=== PATIENT | female | born 1965 | race Hispanic/Latino ===

== ENCOUNTER 2019-04-09 13:49 | Outpatient (CLI) | payer OTHER ==
--- NOTE | 2019-04-09 14:43 | BD ---
EXAM: Bone densitometry using DEXA HISTORY: 53 yo female. Screening for postmenopausal osteoporosis. Encounter for gynecological exam (routine) FINDINGS: L1--bone mineral density 0.822 g/sq cm; T score -1.5 ; Z score -0.7 L2--bone mineral density 0.950 g/sq cm; T score -0.7 ; Z score 0.2 L3--bone mineral density 1.037 g/sq cm; T score -0.4 ; Z score 0.6 L4--bone mineral density 0.967 g/sq cm; T score -0.9 ; Z score 0.1 Total L1-L4--bone mineral density 0.952 g/sq cm; T score -0.9 ; Z score 0.1 Left femoral neck--bone mineral density0.677; T score -1.6 ; Z score -0.6 Total proximal left femur--bone mineral density 1.034; T score 0.8 ; Z score 1.4 The 10 year fracture risk for a major osteoporotic fracture is 3.1% and for a hip fracture is 0.2%. IMPRESSION: Osteopenia
== END 2019-04-09 13:50 | disposition home or self-care (01) ==
LOC: BICMAMMO 13:49
PROVIDERS: ATTEND Family Medicine
DX: Z13.820 Encounter for screening for osteoporosis (principal); M85.89 Other specified disorders of bone density and structure, multiple sites
CPT/HCPCS: 77080

== ENCOUNTER 2020-06-22 09:56 | Outpatient (CLI) | payer BC | END 2020-06-22 09:57 | disposition home or self-care (01) | LOC: BICMAMMO 09:56 | PROVIDERS: ATTEND Family Medicine | DX: Z12.31 Encounter for screening mammogram for malignant neoplasm of breast (principal) | CPT/HCPCS: 77063; 77067 ==

== ENCOUNTER 2021-10-28 14:45 | Inpatient (IN) | payer BC, MEDICARE, OTHER ==
[2021-10-28] MEDS ORDERED: Iopamidol-370 76% 500 ML 1 ML ONE (14:53)
[2021-10-28 15:28] LABS: #Neutrophils 8.1 thou/uL (1.40-6.50); %Basophils 0.1 % (0.0-1.0); %Eosinophils 0.4 % (0.0-10.0); %Lymphocytes 9.8 % (21.0-51.0); %Monocytes 9.5 % (0.0-10.0); %Neutrophils 80.2 % (42.0-75.0); Mean Corpuscular HGB CONC 33.4 g/dL (32.0-36.0); Mean Corpuscular Hemoglobin 29.7 pg (27.0-31.0); Mean Corpuscular Volume 88.9 fL (78.0-98.0); Platelet Count 354 thou/uL (130-400); RBC Distribution Width 13.1 % (11.5-14.5); Red Blood Cell (RBC) Count 4.38 mill/uL (4.20-5.40); White Blood Cell (WBC) Count 10.1 thou/uL (4.8-10.8)
[2021-10-28] MEDS ORDERED: Morphine 4 MG/ML VIAL ONE ×2 (15:34→16:28)
[2021-10-28] MEDS ORDERED: Ondansetron PF 4 MG/2 ML Vial ONE (15:34)
[2021-10-28 15:54] LABS: ALT (SGPT) 16 U/L (8-55); AST (SGOT) 22 U/L (5-34); Albumin 4.1 g/dL (3.5-5.0); Alkaline Phosphatase 80 U/L (40-110); Anion Gap 21 mmol/L (10-20); BUN (Urea Nitrogen) 27 mg/dL (9.8-20.1); Bilirubin, Total 0.6 mg/dL (0.2-1.2); Calc. Creatinine Clearance 0 mL/min (70-130); Calcium 9.8 mg/dL (7.8-10.44); Carbon Dioxide 18 mmol/L (22-29); Chloride 98 mmol/L (98-107); Estimated GFR 37; Globulin 3.3 g/dL (2.4-3.5); Glucose 265 mg/dL (70-105); Protein, Total 7.4 g/dL (6.0-8.3); Sodium 133 mmol/L (136-145)
[2021-10-28 16:00] LABS: Bilirubin Negative (Negative); Blood, Urine 1+ (Negative); Clarity Extra Turbid (Clear); Glucose, Urine (Dipstick) Normal (Negative); Ketone, Urine Trace mg/dL (Negative); Leukocyte 500 Leu/uL (Negative); Nitrite Negative (Negative); Protein, Urine (Dipstick) 20 mg/dL (Neg-Trace); Specific Gravity, Urine 1.012 (1.002-1.036); Urobilinogen Normal mg/dL (Less than 2); WBC/HPF Greater than 50 HPF (0-3)
[2021-10-28 16:14] LABS: Bacteria/HPF 1+ HPF (None Seen); Yeast-Budding 2+ HPF (None Seen)
[2021-10-28] MEDS ORDERED: Fleet Enema 133 ML BOT PR SCH (18:15)
[2021-10-28] MEDS ORDERED: Cefepime 2 GM VIAL ONE (20:00)
[2021-10-28] MEDS ORDERED: Calcium Carbonate 500 MG ChewTAB PO PRN (23:48)
[2021-10-28] MEDS ORDERED: Acetaminophen 650 MG Suppository PR PRN (23:48)
[2021-10-28] MEDS ORDERED: Ondansetron PF 4 MG/2 ML Vial IVP PRN (23:48)
[2021-10-28] MEDS ORDERED: Ondansetron ODT 4 MG TAB PO PRN (23:48)
[2021-10-29 00:03] VITALS: BMI 25.8
[2021-10-29] MEDS: Sodium Chloride 0.9% 1,000 ML IV SCH ×3 (00:20→20:20)
[2021-10-29] MEDS ORDERED: Dextrose 5% in Water 1,000 ML IV PRN (08:15)
[2021-10-29] MEDS ORDERED: HumaLOG 300 UNITS/3 ML VIAL SC PRN (08:15)
[2021-10-29] MEDS ORDERED: Dextrose 50% Abboject 50 ML SYRINGE SLOW IVP PRN (08:15)
[2021-10-29] MEDS: Polyethylene Glycol 3350 17 GM Packet PO SCH (08:26)
[2021-10-29] MEDS ORDERED: Non-Formulary Item 1 EACH (Insulin Nph Hum/Reg Insulin Hm [Novolin 70-30 Flexpen] 100 UNI SQ SCH (09:00)
[2021-10-29] MEDS ORDERED: NIFEdipine XL 60 MG TAB PO SCH (09:00)
[2021-10-29] MEDS ORDERED: NPH, Human Insulin Isophane 300 UNIT/3 ML VIAL SC SCH (09:00)
[2021-10-29 09:30] LABS: Anion Gap 14 mmol/L (10-20); BUN (Urea Nitrogen) 17 mg/dL (9.8-20.1); Calc. Creatinine Clearance 66 mL/min (70-130); Calcium 8.7 mg/dL (7.8-10.44); Carbon Dioxide 25 mmol/L (22-29); Chloride 103 mmol/L (98-107); Estimated GFR 72; Glucose 222 mg/dL (70-105); Potassium 3.4 mmol/L (3.5-5.1); Sodium 139 mmol/L (136-145)
[2021-10-29] MEDS: Famotidine/PF 20 mg/2ml Vial SLOW IVP SCH (09:30)
[2021-10-29] MEDS: Heparin 5,000 UNITS/ML VIAL SC SCH ×3 (10:31→20:14)
[2021-10-29] MEDS: Senokot S 8.6-50 MG TAB PO SCH ×2 (10:31→20:14)
[2021-10-29] MEDS: NIFEdipine XL 60 MG TAB PO SCH (10:31)
[2021-10-29] MEDS: Famotidine 20 MG TAB PO SCH (10:31)
[2021-10-29] MEDS: Carvedilol 6.25 MG TAB PO SCH ×2 (10:32→16:15)
[2021-10-29] MEDS: cefTRIAXone\\ROCEPHIN 1 GM in Sodium Chloride 0.9% 100 ML IVPB SCH (10:32)
[2021-10-29] MEDS: HumuLIN 70/30 (300 UNITS/3 ML VIAL) FS SCH ×2 (10:48→20:14)
[2021-10-29] MEDS ORDERED: Carvedilol 6.25 MG TAB PO SCH (17:00)
[2021-10-29] MEDS ORDERED: Potassium Chloride 20 MEQ TAB PO SCH (18:00)
[2021-10-29] MEDS ORDERED: Bisacodyl 10 MG SUPP PR PRN (19:47)
[2021-10-29] MEDS: Atorvastatin Calcium 40 MG TAB PO SCH (20:13)
[2021-10-29] MEDS ORDERED: Non-Formulary Item 1 EACH (Atorvastatin Calcium [Atorvastatin Calcium] 80 MG Tablet) PO SCH (21:00)
[2021-10-30 07:39] LABS: Anion Gap 13 mmol/L (10-20); BUN (Urea Nitrogen) 12 mg/dL (9.8-20.1); Calc. Creatinine Clearance 74 mL/min (70-130); Calcium 8.7 mg/dL (7.8-10.44); Carbon Dioxide 24 mmol/L (22-29); Chloride 106 mmol/L (98-107); Estimated GFR 82; Glucose 165 mg/dL (70-105); Potassium 3.2 mmol/L (3.5-5.1); Sodium 140 mmol/L (136-145)
[2021-10-30] MEDS: cefTRIAXone\\ROCEPHIN 1 GM in Sodium Chloride 0.9% 100 ML IVPB SCH (09:04)
[2021-10-30] MEDS: Heparin 5,000 UNITS/ML VIAL SC SCH ×3 (09:04→20:44)
[2021-10-30] MEDS: Polyethylene Glycol 3350 17 GM Packet PO SCH (09:04)
[2021-10-30] MEDS: HumuLIN 70/30 (300 UNITS/3 ML VIAL) FS SCH ×2 (09:04→20:45)
[2021-10-30] MEDS: NIFEdipine XL 60 MG TAB PO SCH (09:04)
[2021-10-30] MEDS: Senokot S 8.6-50 MG TAB PO SCH ×2 (09:05→20:39)
[2021-10-30] MEDS: Famotidine/PF 20 mg/2ml Vial SLOW IVP SCH (09:05)
[2021-10-30] MEDS: Carvedilol 6.25 MG TAB PO SCH ×2 (09:05→16:01)
[2021-10-30] MEDS: Famotidine 20 MG TAB PO SCH (09:05)
[2021-10-30] MEDS ORDERED: Potassium Chloride 20 MEQ TAB PO SCH (09:15)
[2021-10-30] MEDS: Atorvastatin Calcium 40 MG TAB PO SCH (20:39)
[2021-10-31] MEDS: Acetaminophen 325 MG TAB PO PRN (05:27)
[2021-10-31 06:56] LABS: Anion Gap 16 mmol/L (10-20); BUN (Urea Nitrogen) 9 mg/dL (9.8-20.1); Calc. Creatinine Clearance 72 mL/min (70-130); Calcium 8.7 mg/dL (7.8-10.44); Carbon Dioxide 25 mmol/L (22-29); Chloride 103 mmol/L (98-107); Estimated GFR 79; Glucose 235 mg/dL (70-105); Potassium 3.5 mmol/L (3.5-5.1); Sodium 140 mmol/L (136-145)
[2021-10-31] MEDS: Famotidine/PF 20 mg/2ml Vial SLOW IVP SCH (08:32)
[2021-10-31] MEDS: Carvedilol 6.25 MG TAB PO SCH ×2 (08:35→16:12)
[2021-10-31] MEDS: Senokot S 8.6-50 MG TAB PO SCH ×2 (08:35→21:18)
[2021-10-31] MEDS: HumuLIN 70/30 (300 UNITS/3 ML VIAL) FS SCH ×2 (08:35→21:18)
[2021-10-31] MEDS: Heparin 5,000 UNITS/ML VIAL SC SCH ×3 (08:35→21:18)
[2021-10-31] MEDS: Polyethylene Glycol 3350 17 GM Packet PO SCH (08:35)
[2021-10-31] MEDS: NIFEdipine XL 60 MG TAB PO SCH (08:35)
[2021-10-31] MEDS: Famotidine 20 MG TAB PO SCH (08:36)
[2021-10-31] MEDS ORDERED: HumaLOG 300 UNITS/3 ML VIAL SC PRN (10:21)
[2021-10-31] MEDS ORDERED: Tamsulosin HCl 0.4 MG CAP PO SCH (10:30)
[2021-10-31] MEDS: cefTRIAXone\\ROCEPHIN 1 GM in Sodium Chloride 0.9% 100 ML IVPB SCH (11:27)
[2021-10-31] MEDS: HumaLOG 300 UNITS/3 ML VIAL SC PRN (17:10)
[2021-10-31] MEDS: Atorvastatin Calcium 40 MG TAB PO SCH (21:21)
[2021-11-01] MEDS: Acetaminophen 325 MG TAB PO PRN (06:23)
[2021-11-01 06:54] LABS: #Eosinphils 0.2 thou/uL (0.0-0.7); #Lymphocytes 2.2 thou/uL (1.20-3.40); #Monocytes 0.5 thou/uL (0.11-0.59); #Neutrophils 2.6 thou/uL (1.40-6.50); %Basophils 0.6 % (0.0-1.0); %Eosinophils 3.4 % (0.0-10.0); %Lymphocytes 40.1 % (21.0-51.0); %Monocytes 9.1 % (0.0-10.0); %Neutrophils 46.8 % (42.0-75.0); Mean Corpuscular HGB CONC 33.5 g/dL (32.0-36.0); Mean Corpuscular Hemoglobin 30.4 pg (27.0-31.0); Mean Corpuscular Volume 90.8 fL (78.0-98.0); Mean Platelet Volume 7.3 fL (7.4-10.4); Platelet Count 349 thou/uL (130-400); RBC Distribution Width 12.8 % (11.5-14.5); White Blood Cell (WBC) Count 5.6 thou/uL (4.8-10.8)
[2021-11-01 07:19] LABS: Anion Gap 17 mmol/L (10-20); BUN (Urea Nitrogen) 10 mg/dL (9.8-20.1); Calc. Creatinine Clearance 76 mL/min (70-130); Calcium 9.4 mg/dL (7.8-10.44); Carbon Dioxide 25 mmol/L (22-29); Chloride 102 mmol/L (98-107); Estimated GFR 84; Glucose 141 mg/dL (70-105); Potassium 3.7 mmol/L (3.5-5.1); Sodium 140 mmol/L (136-145)
[2021-11-01] MEDS: Senokot S 8.6-50 MG TAB PO SCH (08:41)
[2021-11-01] MEDS: Carvedilol 6.25 MG TAB PO SCH ×2 (08:41→17:21)
[2021-11-01] MEDS: Famotidine 20 MG TAB PO SCH (08:41)
[2021-11-01] MEDS: NIFEdipine XL 60 MG TAB PO SCH (08:42)
[2021-11-01] MEDS: Famotidine/PF 20 mg/2ml Vial SLOW IVP SCH (08:42)
[2021-11-01] MEDS: Heparin 5,000 UNITS/ML VIAL SC SCH ×2 (08:42→14:53)
[2021-11-01] MEDS: Polyethylene Glycol 3350 17 GM Packet PO SCH (08:43)
[2021-11-01] MEDS: HumuLIN 70/30 (300 UNITS/3 ML VIAL) FS SCH (08:43)
[2021-11-01] MEDS: cefTRIAXone\\ROCEPHIN 1 GM in Sodium Chloride 0.9% 100 ML IVPB SCH (09:50)
[2021-11-01] MEDS: HumaLOG 300 UNITS/3 ML VIAL SC PRN (12:53)
[2021-11-01 20:19] VITALS: BP 150/83; TEMP 98
[2021-11-01] MEDS ORDERED: Tamsulosin HCl 0.4 MG CAP PO SCH (21:00)
== END 2021-11-01 20:07 | disposition home or self-care (01) | DRG 389 ==
LOC: ERS 14:45 → T4-B 21:01 → OBSVTOIN 10-30 17:58
PROVIDERS: ADMIT Student in an Organized Health Care Education/Training Program; ATTEND Family Medicine
PROC: 0DCP7ZZ Extirpation of Matter from Rectum, Via Natural or Artificial Opening (ICD-10-PCS; principal; 2021-10-30)
DX: K56.41 Fecal impaction (principal); I69.354 Hemiplegia and hemiparesis following cerebral infarction affecting left non-dominant side; N17.9 Acute kidney failure, unspecified; N30.01 Acute cystitis with hematuria; N13.6 Pyonephrosis; Z20.822 Contact with and (suspected) exposure to COVID-19; R33.9 Retention of urine, unspecified; I65.22 Occlusion and stenosis of left carotid artery; I10 Essential (primary) hypertension; E11.9 Type 2 diabetes mellitus without complications; E78.00 Pure hypercholesterolemia, unspecified; L89.152 Pressure ulcer of sacral region, stage 2; E11.628 Type 2 diabetes mellitus with other skin complications; L08.9 Local infection of the skin and subcutaneous tissue, unspecified; Z79.899 Other long term (current) drug therapy; Z79.4 Long term (current) use of insulin; Z80.0 Family history of malignant neoplasm of digestive organs; Z82.49 Family history of ischemic heart disease and other diseases of the circulatory system; Z83.3 Family history of diabetes mellitus
CPT/HCPCS: 36415; 36416; 51702; 70450; 74177; 80048; 80053; 81003; 81015; 83605; 85025; 87040; 87086; 93005; 93880; 94760; 96365; 96372; 96375; 96376; 97139; G0378; J0692; J0696; J1644; J1815; J2270; J2405; J3490; J7050; Q9967; U0003; U0005

== ENCOUNTER 2021-11-04 16:35 | Emergency (ER) | payer MEDICARE ==
[2021-11-04] MEDS ORDERED: Lidocaine Viscous Sol 2% 15 ml UD Cup ONE ×2 (17:24→17:49)
[2021-11-04 17:26] LABS: Bilirubin Negative (Negative); Blood, Urine 2+ (Negative); Clarity Clear (Clear); Glucose, Urine (Dipstick) 30 mg/dL (Negative); Ketone, Urine Negative (Negative); Leukocyte 75 Leu/uL (Negative); Nitrite Negative (Negative); Protein, Urine (Dipstick) 10 mg/dL (Neg-Trace); RBC/HPF 0-3 HPF (0-3); Specific Gravity, Urine 1.005 (1.002-1.036); Squamous Epithelial 0-3 HPF (0-3); Urobilinogen Normal mg/dL (Less than 2)
[2021-11-04 17:27] LABS: Bacteria/HPF 1+ HPF (None Seen)
[2021-11-04 18:22] LABS: #Basophils 0.1 thou/uL (0.0-0.2); #Eosinphils 0.2 thou/uL (0.0-0.7); #Lymphocytes 2.3 thou/uL (1.20-3.40); #Monocytes 0.7 thou/uL (0.11-0.59); #Neutrophils 4.1 thou/uL (1.40-6.50); %Eosinophils 3.4 % (0.0-10.0); %Lymphocytes 31.3 % (21.0-51.0); %Monocytes 9.9 % (0.0-10.0); %Neutrophils 54.5 % (42.0-75.0); Hemoglobin 12.1 g/dL (12.0-16.0); Mean Corpuscular HGB CONC 34.5 g/dL (32.0-36.0); Mean Corpuscular Hemoglobin 30.9 pg (27.0-31.0); Mean Corpuscular Volume 89.6 fL (78.0-98.0); Mean Platelet Volume 7.4 fL (7.4-10.4); Platelet Count 346 thou/uL (130-400); RBC Distribution Width 12.7 % (11.5-14.5); Red Blood Cell (RBC) Count 3.91 mill/uL (4.20-5.40); White Blood Cell (WBC) Count 7.4 thou/uL (4.8-10.8)
[2021-11-04 18:50] LABS: ALT (SGPT) 20 U/L (8-55); AST (SGOT) 18 U/L (5-34); Albumin 3.5 g/dL (3.5-5.0); Alkaline Phosphatase 74 U/L (40-110); Anion Gap 13 mmol/L (10-20); BUN (Urea Nitrogen) 18 mg/dL (9.8-20.1); Bilirubin, Total 0.3 mg/dL (0.2-1.2); Calc. Creatinine Clearance 0 mL/min (70-130); Carbon Dioxide 25 mmol/L (22-29); Chloride 100 mmol/L (98-107); Estimated GFR 70; Globulin 2.6 g/dL (2.4-3.5); Glucose 275 mg/dL (70-105); Potassium 3.8 mmol/L (3.5-5.1); Protein, Total 6.1 g/dL (6.0-8.3); Sodium 134 mmol/L (136-145)
== END 2021-11-04 19:38 | disposition home or self-care (01) ==
LOC: ERS 16:35
DX: T83.84XA Pain due to genitourinary prosthetic devices, implants and grafts, initial encounter (principal); R82.71 Bacteriuria; E11.9 Type 2 diabetes mellitus without complications; I10 Essential (primary) hypertension; E78.00 Pure hypercholesterolemia, unspecified; Z79.899 Other long term (current) drug therapy
CPT/HCPCS: 36415; 51702; 80053; 81003; 81015; 83036; 84443; 85025; 87086

== ENCOUNTER 2021-11-11 16:19 | Emergency (ER) | payer MEDICARE, OTHER ==
[2021-11-11 17:05] LABS: #Eosinphils 0.2 thou/uL (0.0-0.7); #Lymphocytes 2.7 thou/uL (1.20-3.40); #Monocytes 0.6 thou/uL (0.11-0.59); #Neutrophils 2.8 thou/uL (1.40-6.50); %Basophils 0.6 % (0.0-1.0); %Lymphocytes 42.4 % (21.0-51.0); %Monocytes 9.8 % (0.0-10.0); %Neutrophils 44.2 % (42.0-75.0); Hemoglobin 12.8 g/dL (12.0-16.0); Mean Corpuscular HGB CONC 33.8 g/dL (32.0-36.0); Mean Corpuscular Hemoglobin 30.5 pg (27.0-31.0); Mean Platelet Volume 7.6 fL (7.4-10.4); Platelet Count 411 thou/uL (130-400); RBC Distribution Width 13.4 % (11.5-14.5); Red Blood Cell (RBC) Count 4.21 mill/uL (4.20-5.40); White Blood Cell (WBC) Count 6.3 thou/uL (4.8-10.8)
[2021-11-11 17:29] LABS: ALT (SGPT) 16 U/L (8-55); AST (SGOT) 14 U/L (5-34); Albumin 4.1 g/dL (3.5-5.0); Alkaline Phosphatase 77 U/L (40-110); Anion Gap 14 mmol/L (10-20); BUN (Urea Nitrogen) 20 mg/dL (9.8-20.1); Bilirubin, Total 0.3 mg/dL (0.2-1.2); Calc. Creatinine Clearance 0 mL/min (70-130); Calcium 9.8 mg/dL (7.8-10.44); Carbon Dioxide 21 mmol/L (22-29); Chloride 104 mmol/L (98-107); Estimated GFR 79; Globulin 3.1 g/dL (2.4-3.5); Glucose 306 mg/dL (70-105); Potassium 4.2 mmol/L (3.5-5.1); Protein, Total 7.2 g/dL (6.0-8.3); Sodium 135 mmol/L (136-145)
[2021-11-11 17:44] LABS: Bacteria/HPF None Seen HPF (None Seen); Bilirubin Negative (Negative); Blood, Urine 1+ (Negative); Clarity Clear (Clear); Glucose, Urine (Dipstick) Greater than 1000 mg/dL (Negative); Ketone, Urine Negative (Negative); Leukocyte 250 Leu/uL (Negative); Nitrite Negative (Negative); Protein, Urine (Dipstick) 50 mg/dL (Neg-Trace); Specific Gravity, Urine 1.028 (1.002-1.036); Squamous Epithelial 0-3 HPF (0-3); Urobilinogen Normal mg/dL (Less than 2)
[2021-11-11 17:46] LABS: Calcium Oxalate Crystals Rare HPF (None Seen); Yeast-Budding 1+ HPF (None Seen)
[2021-11-11] MEDS ORDERED: Ketorolac Tromethamine 30 MG/ML VIAL ONE (18:02)
== END 2021-11-11 18:45 | disposition home or self-care (01) ==
LOC: ERS 16:19
DX: T83.84XA Pain due to genitourinary prosthetic devices, implants and grafts, initial encounter (principal); N39.0 Urinary tract infection, site not specified; I10 Essential (primary) hypertension; E11.9 Type 2 diabetes mellitus without complications; E78.00 Pure hypercholesterolemia, unspecified; Z79.899 Other long term (current) drug therapy
CPT/HCPCS: 36415; 80053; 81003; 81015; 85025; 87086; 96372; 99283; J1885

== ENCOUNTER 2021-11-19 17:23 | Emergency (ER) | payer MEDICARE ==
[2021-11-19 19:16] LABS: Bilirubin Negative (Negative); Blood, Urine Negative (Negative); Clarity Clear (Clear); Glucose, Urine (Dipstick) 500 mg/dL (Negative); Ketone, Urine Negative (Negative); Leukocyte 250 Leu/uL (Negative); Nitrite Negative (Negative); Protein, Urine (Dipstick) 50 mg/dL (Neg-Trace); Specific Gravity, Urine 1.032 (1.002-1.036); Urobilinogen Normal mg/dL (Less than 2); pH, Urine 5.5 (5.0-9.0)
[2021-11-19 19:18] LABS: Bacteria/HPF 1+ HPF (None Seen); Yeast-Budding 2+ HPF (None Seen)
[2021-11-19 19:19] LABS: RBC/HPF 0-3 HPF (0-3)
== END 2021-11-19 20:29 | disposition home or self-care (01) ==
LOC: ERS 17:23
DX: T83.84XA Pain due to genitourinary prosthetic devices, implants and grafts, initial encounter (principal); R33.9 Retention of urine, unspecified; I10 Essential (primary) hypertension; E11.9 Type 2 diabetes mellitus without complications; E78.00 Pure hypercholesterolemia, unspecified; Z79.899 Other long term (current) drug therapy
CPT/HCPCS: 81003; 81015; 99283

== ENCOUNTER 2022-05-31 16:18 | Outpatient (CLI) | payer MEDICARE ==
[2022-05-31 17:06] LABS: #Eosinphils 0.2 10x3/uL (0.0-0.5); #Monocytes 0.5 10x3/uL (0.0-1.1); #Neutrophils 3.3 10x3/uL (1.5-8.4); %Basophils 0.6 % (0.0-2.0); %Eosinophils 2.5 % (0.0-6.0); %Lymphocytes 37.3 % (18.0-47.0); %Monocytes 7.5 % (0.0-10.0); %Neutrophils 51.9 % (40.0-75.0); Hemoglobin 13.1 g/dL (12.0-15.5); Mean Corpuscular HGB CONC 32.9 g/dL (32.0-36.0); Mean Corpuscular Hemoglobin 29.2 pg (27.0-33.0); Mean Corpuscular Volume 88.8 fl (81.6-98.3); Mean Platelet Volume 10.1 fl (7.4-10.4); Platelet Count 375 10x3/uL (150-450); RBC Distribution Width 12.8 % (11.5-14.5); Red Blood Cell (RBC) Count 4.48 10x6/uL (3.90-5.03); White Blood Cell (WBC) Count 6.3 10x3/uL (3.5-10.5)
[2022-05-31 17:16] LABS: ALT (SGPT) 17 U/L (8-55); AST (SGOT) 19 U/L (5-34); Albumin 4.3 g/dL (3.5-5.0); Alkaline Phosphatase 95 U/L (40-110); Anion Gap 17 mmol/L (10-20); BUN (Urea Nitrogen) 22 mg/dL (9.8-20.1); Bilirubin, Total 0.3 mg/dL (0.2-1.2); Calc. Creatinine Clearance 0 mL/min (70-130); Calcium 9.3 mg/dL (7.8-10.44); Carbon Dioxide 24 mmol/L (22-29); Chloride 105 mmol/L (98-107); Estimated GFR 77; Globulin 2.9 g/dL (2.4-3.5); Glucose 222 mg/dL (70-105); Potassium 4.2 mmol/L (3.5-5.1); Protein, Total 7.2 g/dL (6.0-8.3); Sodium 142 mmol/L (136-145)
== END 2022-05-31 16:19 | disposition home or self-care (01) ==
LOC: LABBT 16:18
PROVIDERS: ATTEND Internal Medicine Cardiovascular Disease
DX: Z01.812 Encounter for preprocedural laboratory examination (principal); R06.00 Dyspnea, unspecified
CPT/HCPCS: 80053; 85025

== ENCOUNTER 2022-06-02 06:08 | Day surgery (SDC) | payer MEDICARE ==
[2022-06-01 11:11] VITALS: BMI 31.1
[2022-06-02] MEDS ORDERED: fentaNYL 50 mcg/mL 1 mL Vial ONE (06:21)
[2022-06-02] MEDS ORDERED: Midazolam HCl 2 mg/2 ml Vial ONE (06:21)
[2022-06-02] MEDS ORDERED: Heparin 10,000 UNITS/ 10 ML VIAL ONE (06:21)
[2022-06-02] MEDS ORDERED: Nitroglycerin 50 MG/250 ML BOT 0 ML ONE (06:22)
[2022-06-02] MEDS ORDERED: Lidocaine 1% (PF) 30 ML VIAL ONE (06:22)
[2022-06-02] MEDS ORDERED: Iopamidol 370 76% 100 ML VIAL ONE (12:56)
== END 2022-06-02 10:45 | disposition home or self-care (01) ==
LOC: SDC 06:08
PROVIDERS: ATTEND Internal Medicine Cardiovascular Disease
PROC: 4A023N7 Measurement of Cardiac Sampling and Pressure, Left Heart, Percutaneous Approach (ICD-10-PCS; principal; 2022-06-02)
PROC: B2111ZZ Fluoroscopy of Multiple Coronary Arteries using Low Osmolar Contrast (ICD-10-PCS; 2022-06-02)
DX: I25.10 Atherosclerotic heart disease of native coronary artery without angina pectoris (principal); E78.5 Hyperlipidemia, unspecified; E11.51 Type 2 diabetes mellitus with diabetic peripheral angiopathy without gangrene; Z79.4 Long term (current) use of insulin; Z79.82 Long term (current) use of aspirin; Z79.899 Other long term (current) drug therapy
CPT/HCPCS: 82962; 93458; C1769 ×2; C1894; J3010; 36416; 99152; J1644; J2001; J2250; Q9967

== ENCOUNTER 2022-10-26 11:54 | Outpatient (CLI) | payer OTHER | END 2022-10-26 11:55 | disposition home or self-care (01) | LOC: RAD 11:54 | PROVIDERS: ATTEND Nurse Practitioner Family | DX: R53.1 Weakness (principal); E11.65 Type 2 diabetes mellitus with hyperglycemia | CPT/HCPCS: 36415; 71046; 80053; 81001; 83036; 83880; 85025; 85379; 87086 ==

== ENCOUNTER 2022-10-27 12:15 | Emergency (ER) | payer OTHER | END 2022-10-27 14:23 | disposition home or self-care (01) | LOC: ERS 12:15 | DX: R79.1 Abnormal coagulation profile (principal); E11.9 Type 2 diabetes mellitus without complications; E78.00 Pure hypercholesterolemia, unspecified; I10 Essential (primary) hypertension; Z79.82 Long term (current) use of aspirin; Z79.899 Other long term (current) drug therapy | CPT/HCPCS: 93970 ==

== ENCOUNTER 2022-12-01 08:30 | Outpatient (CLI) | payer OTHER | END 2022-12-01 08:31 | disposition home or self-care (01) | LOC: MRI 08:30 | PROVIDERS: ATTEND Family Medicine | DX: M54.16 Radiculopathy, lumbar region (principal); N32.89 Other specified disorders of bladder; D17.79 Benign lipomatous neoplasm of other sites | CPT/HCPCS: 72148 ==

== ENCOUNTER 2022-12-13 07:42 | Inpatient (IN) | payer OTHER, MEDICARE ==
[2022-12-13 08:52] LABS: Actual Bicarbonate (HCO3v) 21.9 mEq/L (22-28); Base Excess -2.6 mEq/L (-2.0 to +3.0); Calcium, Ionized (venous) 1.12 mmol/L (1.16-1.32); Chloride (VBG) 106 mmol/L (98-106); Hematocrit-VBG 43 % (36.0-47.0); Hemoglobin (Hb) 14.5 g/dL (11.7-16.0); Potassium (VBG) 3.47 mmol/L (3.70-5.30); Sodium 140 mmol/L (133-146); pH (venous) 7.389 (7.32-7.43)
[2022-12-13 08:59] LABS: Hematocrit 41.1 % (36.0-47.0); Hemoglobin 13.8 g/dL (12.0-16.0); Mean Corpuscular HGB CONC 33.6 g/dL (32.0-36.0); Mean Corpuscular Hemoglobin 30.6 pg (27.0-31.0); Mean Corpuscular Volume 91.1 fl (78.0-98.0); Mean Platelet Volume 10.3 fL (7.4-10.4); Platelet Count 256 10x3/uL (130-400); RBC Distribution Width 14.3 % (11.5-14.5); Red Blood Cell (RBC) Count 4.51 mill/uL (4.20-5.40); White Blood Cell (WBC) Count 5.6 10x3/uL (4.8-10.8)
[2022-12-13 09:19] LABS: Acetaminophen Less than 10 mcg/mL (10.0-30.0); Alcohol Less than 10.0 mg/dL (Less than 10); Delete Auto Diff?? YES; Manual Diff?? YES; Salicylate Less than 8.0 mg/dL (15.0-30.0)
[2022-12-13 09:20] LABS: ALT (SGPT) 34 U/L (8-55); AST (SGOT) 26 U/L (5-34); Albumin 4.1 g/dL (3.5-5.0); Alkaline Phosphatase 142 U/L (40-110); Anion Gap 17 mmol/L (10-20); BUN (Urea Nitrogen) 19 mg/dL (9.8-20.1); Bilirubin, Total 1.2 mg/dL (0.2-1.2); CK (CPK) 31 U/L (29-168); Calc. Creatinine Clearance 0 mL/min (70-130); Calcium 9.3 mg/dL (7.8-10.44); Carbon Dioxide 23 mmol/L (22-29); Chloride 106 mmol/L (98-107); Estimated GFR 66; Globulin 2.2 g/dL (2.4-3.5); Glucose 184 mg/dL (70-105); Potassium 3.5 mmol/L (3.5-5.1); Protein, Total 6.3 g/dL (6.0-8.3); Sodium 142 mmol/L (136-145)
[2022-12-13] MEDS ORDERED: Iopamidol 370 76% 100 ML VIAL ONE (09:29)
[2022-12-13] MEDS ORDERED: Magnevist 469MG/ML 20 ML VIAL ONE ×2 (09:39)
[2022-12-13 09:49] LABS: Band 20 % (5-11); CellaVision Operator ID LAB.GE; Giant Platelets 1.9 % (0-5); Large Platelets 4.9 % (0-5); Lymphocytes 3 % (21-51); Metamyelocyte 2 % (0-0); Monocytes 2 % (0-10); Neutrophil 71 % (42-75); Ovalocytes SLIGHT = 2-5 cells HPF (0-1); Platelet Adequacy Comment Platelets Normal; Polychromasia SLIGHT = 2-3 cells HPF (0-2); Total Cell Count 103
[2022-12-13] MEDS ORDERED: Cefepime 2 GM VIAL ONE (09:49)
[2022-12-13] MEDS ORDERED: Acetaminophen 500 MG TAB ONE (09:58)
[2022-12-13] MEDS ORDERED: Vancomycin (BATCH) 1.5 GM in Premix 1 BAG IVPB SCH (10:00)
[2022-12-13 10:10] LABS: Bilirubin Negative (Negative); Blood, Urine Moderate (Negative); Glucose, Urine (Dipstick) Negative (Negative); Ketone, Urine Negative (Negative); Leukocyte Large (Negative); Nitrite Negative (Negative); Protein, Urine (Dipstick) 30 mg/dL (Neg-Trace); Specific Gravity, Urine 1.015 (1.005-1.030); Urobilinogen 0.2 mg/dL (Less than 2); pH, Urine 6.5 (5.0-9.0)
[2022-12-13 10:11] LABS: INR-International Normal Ratio 1.1; Prothrombin Time 14.9 sec (12.0-14.7)
[2022-12-13 10:15] LABS: Clarity Cloudy (Clear)
[2022-12-13 10:18] LABS: Bacteria/HPF 3+ HPF (None Seen); CAUTI Indications for Culture Alt mental st,lethar; Urine Culture Reflex Yes Yes; WBC/HPF Greater than 50 HPF (0-3)
[2022-12-13 10:22] LABS: Amphetamine Not Detected (NotDetected); Barbiturates Screen Not Detected (NotDetected); Benzodiazepine Screen Not Detected (NotDetected); Cocaine Metabolite Screen Not Detected (NotDetected); Methadone Not Detected (NotDetected); Methamphetamine Not Detected (NotDetected); Opiate Screen Detected (NotDetected); Oxycodone Screen Not Detected (NotDetected); Phencyclidine (PCP) Not Detected (NotDetected); THC/Cannabinoid Screen Not Detected (NotDetected); Tricyclic Screen Not Detected (NotDetected)
[2022-12-13 10:52] LABS: Magnesium 1.8 mg/dL (1.6-2.6)
[2022-12-13 10:53] LABS: Lipase 8 U/L (8-78)
[2022-12-13 10:57] LABS: SARS-CoV-2 NAA Rapid Test Not Detected (NotDetected)
[2022-12-13] MEDS ORDERED: Morphine 4 MG/ML VIAL ONE ×2 (11:13→14:55)
[2022-12-13 12:06] LABS: Lactic Acid 2.3 mmol/L (0.5-2.2)
[2022-12-13 12:40] LABS: CRP (Inflammatory) 9.68 mg/dL (= or < 0.5); Phosphorus 2.6 mg/dL (2.3-4.7)
[2022-12-13] MEDS ORDERED: Sodium Chloride 0.9% 1,000 ML IV SCH ×2 (14:45→16:30)
[2022-12-13] MEDS ORDERED: Acetaminophen 650 MG Suppository PR PRN (14:46)
[2022-12-13] MEDS ORDERED: Ondansetron ODT 4 MG TAB PO PRN (14:46)
[2022-12-13] MEDS ORDERED: Ondansetron PF 4 MG/2 ML Vial IVP PRN (14:46)
[2022-12-13] MEDS ORDERED: Dextrose 5% in Water 1,000 ML IV PRN (14:48)
[2022-12-13] MEDS ORDERED: Glucagon 1 MG/ML KIT IM PRN (14:48)
[2022-12-13] MEDS ORDERED: Dextrose 50% Abboject 50 ML SYRINGE SLOW IVP PRN (14:48)
[2022-12-13] MEDS ORDERED: HumaLOG 300 UNITS/3 ML VIAL SC PRN (14:48)
[2022-12-13] MEDS ORDERED: Bisacodyl 10 MG SUPP PR PRN (14:51)
[2022-12-13] MEDS ORDERED: Electrolyte Replacement Protocol FS PRN (15:00)
[2022-12-13] MEDS ORDERED: Electrolyte Replacement Protocol 1 EACH FS SCH (15:00)
[2022-12-13] MEDS ORDERED: Potassium Chloride 20 MEQ TAB PO SCH (15:00)
[2022-12-13] MEDS ORDERED: Magnesium 2 GM/50 ML(in water) 2 GM in Premix 1 BAG IVPB SCH ×2 (15:00→18:15)
[2022-12-13 15:10] LABS: Lactic Acid 1.6 mmol/L (0.5-2.2)
[2022-12-13] MEDS ORDERED: Thrombin 5000 UNITS/5 ML VIAL ONE (17:02)
[2022-12-13] MEDS: Lactated Ringer's 1,000 ML IV SCH ×2 (17:37→18:01)
[2022-12-13 17:42] VITALS: BMI 30.1
[2022-12-13] MEDS: Atorvastatin Calcium 40 MG TAB PO SCH (20:22)
[2022-12-13] MEDS: Acetaminophen 325 MG TAB PO PRN (20:22)
[2022-12-13] MEDS ORDERED: Cefepime 2 GM in Sodium Chloride 0.9% 100 ML IVPB SCH (22:00)
[2022-12-13 23:38] LABS: Anion Gap 15 mmol/L (10-20); BUN (Urea Nitrogen) 17 mg/dL (9.8-20.1); Calc. Creatinine Clearance 81 mL/min (70-130); Calcium 8.1 mg/dL (7.8-10.44); Carbon Dioxide 16 mmol/L (22-29); Chloride 109 mmol/L (98-107); Estimated GFR 77; Glucose 182 mg/dL (70-105); Magnesium 2.2 mg/dL (1.6-2.6); Phosphorus 3.6 mg/dL (2.3-4.7); Potassium 3.9 mmol/L (3.5-5.1); Sodium 136 mmol/L (136-145)
[2022-12-14] MEDS ORDERED: Gabapentin 300 MG CAP PO SCH (04:30)
[2022-12-14] MEDS: Lactated Ringer's 1,000 ML IV SCH ×6 (04:37→15:42)
[2022-12-14 06:07] LABS: Mean Corpuscular HGB CONC 33.7 g/dL (32.0-36.0); Mean Corpuscular Hemoglobin 30.8 pg (27.0-31.0); Mean Corpuscular Volume 91.6 fl (78.0-98.0); Mean Platelet Volume 10.9 fL (7.4-10.4); Platelet Count 208 10x3/uL (130-400); RBC Distribution Width 14.9 % (11.5-14.5); Red Blood Cell (RBC) Count 3.34 mill/uL (4.20-5.40); White Blood Cell (WBC) Count 24.2 10x3/uL (4.8-10.8)
[2022-12-14] MEDS ORDERED: Meropenem 1 GM in Sodium Chloride 0.9% 100 ML IVPB SCH ×2 (06:15→14:00)
[2022-12-14 06:20] LABS: Hemoglobin 10.3 g/dL (12.0-16.0)
[2022-12-14 06:21] LABS: Delete Auto Diff?? YES; Hematocrit 30.6 % (36.0-47.0); Manual Diff?? YES
[2022-12-14 06:58] LABS: Band 27 % (5-11); Burr Cells SLIGHT = 2-5 cells HPF (0-1); CellaVision Operator ID LAB.GE; Lymphocytes 3 % (21-51); Metamyelocyte 3 % (0-0); Monocytes 1 % (0-10); Myelocyte 2 % (0-0); Neutrophil 63 % (42-75); Platelet Adequacy Comment Platelets Normal; Polychromasia SLIGHT = 2-3 cells HPF (0-2); Reactive Lymphocytes 2 % (0-10); Total Cell Count 102; Vacuoles SLIGHT
[2022-12-14 07:07] LABS: ALT (SGPT) 27 U/L (8-55); AST (SGOT) 28 U/L (5-34); Albumin 3.1 g/dL (3.5-5.0); Alkaline Phosphatase 101 U/L (40-110); Anion Gap 12 mmol/L (10-20); BUN (Urea Nitrogen) 18 mg/dL (9.8-20.1); Calc. Creatinine Clearance 82 mL/min (70-130); Calcium 8.3 mg/dL (7.8-10.44); Carbon Dioxide 20 mmol/L (22-29); Chloride 110 mmol/L (98-107); Estimated GFR 79; Globulin 2.2 g/dL (2.4-3.5); Glucose 154 mg/dL (70-105); Potassium 3.6 mmol/L (3.5-5.1); Protein, Total 5.3 g/dL (6.0-8.3); Sodium 138 mmol/L (136-145)
[2022-12-14] MEDS: Aspirin 81 mg Enteric Coated Tablet PO SCH (09:00)
[2022-12-14] MEDS: Polyethylene Glycol 3350 17 GM Packet PO SCH (09:00)
[2022-12-14] MEDS ORDERED: Vancomycin (BATCH) 1.5 GM in Premix 1 BAG IVPB SCH (11:00)
[2022-12-14] MEDS: Acetaminophen 325 MG TAB PO PRN (12:48)
[2022-12-14] MEDS ORDERED: Morphine 2 MG/ML VIAL SLOW IVP PRN ×2 (14:55)
[2022-12-14] MEDS: Meropenem 2 GM, Admixture Fee 1 EACH in Sodium Chloride 0.9% 100 ML IVPB SCH ×2 (15:26→22:35)
[2022-12-14] MEDS: Morphine 2 MG/ML VIAL SLOW IVP PRN ×2 (18:24→22:38)
[2022-12-14] MEDS: Gabapentin 300 MG CAP PO SCH (20:44)
[2022-12-14] MEDS: Atorvastatin Calcium 40 MG TAB PO SCH (20:44)
[2022-12-15 05:04] LABS: Hematocrit 27.9 % (36.0-47.0); Hemoglobin 9.3 g/dL (12.0-16.0); Mean Corpuscular HGB CONC 33.3 g/dL (32.0-36.0); Mean Corpuscular Hemoglobin 30.9 pg (27.0-31.0); Mean Corpuscular Volume 92.7 fl (78.0-98.0); Mean Platelet Volume 11.1 fL (7.4-10.4); Platelet Count 190 10x3/uL (130-400); Red Blood Cell (RBC) Count 3.01 mill/uL (4.20-5.40); White Blood Cell (WBC) Count 18.2 10x3/uL (4.8-10.8)
[2022-12-15 05:12] LABS: Delete Auto Diff?? YES; Manual Diff?? YES
[2022-12-15 05:33] LABS: Anion Gap 11 mmol/L (10-20); BUN (Urea Nitrogen) 16 mg/dL (9.8-20.1); Calc. Creatinine Clearance 96 mL/min (70-130); Calcium 8.3 mg/dL (7.8-10.44); Carbon Dioxide 22 mmol/L (22-29); Chloride 110 mmol/L (98-107); Estimated GFR 94; Glucose 102 mg/dL (70-105); Potassium 3.4 mmol/L (3.5-5.1); Sodium 140 mmol/L (136-145)
[2022-12-15] MEDS: Meropenem 2 GM, Admixture Fee 1 EACH in Sodium Chloride 0.9% 100 ML IVPB SCH ×3 (05:34→21:33)
[2022-12-15 05:37] LABS: Band 19 % (5-11); CellaVision Operator ID LAB.CLH1; Elliptocytes SLIGHT = 2-5 cells HPF (0-1); Hypochromia SLIGHT = 6-15 cells HPF (0-5); Lymphocytes 7 % (21-51); Monocytes 3 % (0-10); Neutrophil 71 % (42-75); Platelet Adequacy Comment Platelets Normal; Polychromasia SLIGHT = 2-3 cells HPF (0-2); Total Cell Count 101
[2022-12-15] MEDS: Morphine 2 MG/ML VIAL SLOW IVP PRN ×3 (05:39→21:23)
[2022-12-15] MEDS: Lactated Ringer's 1,000 ML IV SCH ×4 (05:42→17:56)
[2022-12-15] MEDS ORDERED: Potassium Chloride 20 MEQ TAB PO SCH (08:00)
[2022-12-15] MEDS: Aspirin 81 mg Enteric Coated Tablet PO SCH (08:38)
[2022-12-15] MEDS: Gabapentin 300 MG CAP PO SCH ×2 (08:39→21:14)
[2022-12-15] MEDS: Polyethylene Glycol 3350 17 GM Packet PO SCH (08:39)
[2022-12-15 10:43] LABS: Vancomycin, Trough 4.7 ug/mL
[2022-12-15] MEDS: Atorvastatin Calcium 40 MG TAB PO SCH (21:13)
[2022-12-16] MEDS: Lactated Ringer's 1,000 ML IV SCH ×3 (00:22→13:23)
[2022-12-16] MEDS ORDERED: Thrombin 5000 UNITS/5 ML VIAL ONE (06:39)
[2022-12-16] MEDS: Meropenem 2 GM, Admixture Fee 1 EACH in Sodium Chloride 0.9% 100 ML IVPB SCH ×3 (06:41→22:53)
[2022-12-16] MEDS ORDERED: Midazolam HCl 2 mg/2 ml Vial ONE (07:55)
[2022-12-16] MEDS ORDERED: fentaNYL 50 mcg/mL 1 mL Vial ONE ×2 (07:55→09:06)
[2022-12-16] MEDS ORDERED: PROPOFOL 200 MG/20 ML VIAL ONE (08:05)
[2022-12-16] MEDS ORDERED: Lidocaine 1% PF 5 ML VIAL ONE (08:05)
[2022-12-16] MEDS ORDERED: PHENYLEPHRINE-NS 100 MCG/ML 10 ML SYRINGE ONE (08:05)
[2022-12-16] MEDS ORDERED: Rocuronium Bromide 10 MG/ML (10ML VIAL) ONE (08:05)
[2022-12-16] MEDS ORDERED: Ondansetron PF 4 MG/2 ML Vial ONE (08:05)
[2022-12-16] MEDS ORDERED: Labetalol HCl 100 MG/20 ML VIAL ONE (08:05)
[2022-12-16] MEDS ORDERED: Phenylephrine 10 MG/ML VIAL ONE (08:24)
[2022-12-16] MEDS ORDERED: Ondansetron HCl/PF 4 MG/2 ML Vial IVP PRN (08:47)
[2022-12-16] MEDS ORDERED: Promethazine HCl 25 MG/ML VIAL IM PRN (08:47)
[2022-12-16] MEDS ORDERED: Amlodipine 5 MG TAB PO SCH (09:00)
[2022-12-16] MEDS ORDERED: SUGAMMADEX SODIUM 200 MG/2 ML VIAL ONE (09:03)
[2022-12-16] MEDS: Gabapentin 300 MG CAP PO SCH ×2 (11:59→19:53)
[2022-12-16] MEDS: Polyethylene Glycol 3350 17 GM Packet PO SCH (11:59)
[2022-12-16] MEDS: Aspirin 81 mg Enteric Coated Tablet PO SCH (11:59)
[2022-12-16] MEDS: Morphine 2 MG/ML VIAL SLOW IVP PRN ×3 (12:22→22:53)
[2022-12-16] MEDS ORDERED: hydrALAZINE 20 MG/ML VIAL SLOW IVP PRN (13:00)
[2022-12-16] MEDS ORDERED: Potassium Chloride 20 MEQ TAB PO SCH (13:00)
[2022-12-16] MEDS ORDERED: hydrALAZINE 25 MG TAB PO PRN (13:00)
[2022-12-16] MEDS ORDERED: Acetaminophen/Codeine 30-300mg Tablet PO PRN (13:27)
[2022-12-16] MEDS ORDERED: CEFAZOLIN 2 GM in Sodium Chloride 0.9% 100 ML IVPB SCH (14:00)
[2022-12-16] MEDS: Sodium Chloride 0.9% 1,000 ML IV SCH (14:39)
[2022-12-16] MEDS: Acetaminophen/Codeine 30-300mg Tablet PO PRN (15:12)
[2022-12-16] MEDS ORDERED: Morphine 4 MG/ML VIAL SLOW IVP SCH (16:00)
[2022-12-16] MEDS: CEFAZOLIN 2 GM in Sodium Chloride 0.9% 100 ML IVPB SCH (17:44)
[2022-12-16] MEDS: Amlodipine 5 MG TAB PO SCH (19:47)
[2022-12-16] MEDS: Atorvastatin Calcium 40 MG TAB PO SCH (19:53)
[2022-12-17] MEDS: CEFAZOLIN 2 GM in Sodium Chloride 0.9% 100 ML IVPB SCH (01:43)
[2022-12-17] MEDS: Morphine 2 MG/ML VIAL SLOW IVP PRN ×3 (03:41→20:25)
[2022-12-17] MEDS: Sodium Chloride 0.9% 1,000 ML IV SCH ×2 (03:42→16:30)
[2022-12-17] MEDS: Lactated Ringer's 1,000 ML IV SCH ×3 (06:20→21:13)
[2022-12-17 06:30] LABS: Hematocrit 33.2 % (36.0-47.0); Hemoglobin 11.2 g/dL (12.0-16.0); Mean Corpuscular HGB CONC 33.7 g/dL (32.0-36.0); Mean Corpuscular Hemoglobin 29.9 pg (27.0-31.0); Mean Corpuscular Volume 88.5 fl (78.0-98.0); Mean Platelet Volume 11.3 fL (7.4-10.4); Platelet Count 234 10x3/uL (130-400); RBC Distribution Width 14.2 % (11.5-14.5); Red Blood Cell (RBC) Count 3.75 mill/uL (4.20-5.40); White Blood Cell (WBC) Count 9.4 10x3/uL (4.8-10.8)
[2022-12-17 06:31] LABS: #Basophils 0.1 thou/uL (0.0-0.2); #Eosinphils 0.3 thou/uL (0.0-0.7); #Monocytes 1.4 thou/uL (0.11-0.59); #Neutrophils 5.9 thou/uL (1.40-6.50); %Basophils 0.5 % (0.0-1.0); %Eosinophils 3.1 % (0.0-10.0); %Lymphocytes 18.6 % (21.0-51.0); %Monocytes 14.6 % (0.0-10.0)
[2022-12-17] MEDS: Meropenem 2 GM, Admixture Fee 1 EACH in Sodium Chloride 0.9% 100 ML IVPB SCH ×3 (06:44→21:13)
[2022-12-17 06:58] LABS: ALT (SGPT) 19 U/L (8-55); AST (SGOT) 23 U/L (5-34); Albumin 3.2 g/dL (3.5-5.0); Alkaline Phosphatase 126 U/L (40-110); Anion Gap 13 mmol/L (10-20); BUN (Urea Nitrogen) 9 mg/dL (9.8-20.1); Bilirubin, Total 0.5 mg/dL (0.2-1.2); Calc. Creatinine Clearance 95 mL/min (70-130); Calcium 8.2 mg/dL (7.8-10.44); Carbon Dioxide 27 mmol/L (22-29); Chloride 101 mmol/L (98-107); Estimated GFR 93; Globulin 2.6 g/dL (2.4-3.5); Glucose 110 mg/dL (70-105); Magnesium 1.8 mg/dL (1.6-2.6); Potassium 3.3 mmol/L (3.5-5.1); Protein, Total 5.8 g/dL (6.0-8.3); Sodium 138 mmol/L (136-145)
[2022-12-17] MEDS ORDERED: Potassium Chloride 20 MEQ TAB PO SCH (08:00)
[2022-12-17] MEDS: Gabapentin 300 MG CAP PO SCH ×2 (08:59→20:23)
[2022-12-17] MEDS: Polyethylene Glycol 3350 17 GM Packet PO SCH (09:00)
[2022-12-17] MEDS: Amlodipine 5 MG TAB PO SCH ×2 (09:00→20:18)
[2022-12-17] MEDS ORDERED: Magnesium 2 GM/50 ML(in water) 2 GM in Premix 1 BAG IVPB SCH (09:00)
[2022-12-17] MEDS: Aspirin 81 mg Enteric Coated Tablet PO SCH (09:00)
[2022-12-17] MEDS: HumaLOG 300 UNITS/3 ML VIAL SC PRN (13:34)
[2022-12-17 14:07] LABS: Potassium 3.5 mmol/L (3.5-5.1)
[2022-12-17] MEDS: Atorvastatin Calcium 40 MG TAB PO SCH (20:24)
[2022-12-18] MEDS: Lactated Ringer's 1,000 ML IV SCH (05:45)
[2022-12-18] MEDS: Sodium Chloride 0.9% 1,000 ML IV SCH (05:46)
[2022-12-18] MEDS: Acetaminophen/Codeine 30-300mg Tablet PO PRN ×3 (05:48→21:47)
[2022-12-18] MEDS: Meropenem 2 GM, Admixture Fee 1 EACH in Sodium Chloride 0.9% 100 ML IVPB SCH ×3 (05:53→22:42)
[2022-12-18] MEDS: HumaLOG 300 UNITS/3 ML VIAL SC PRN (06:37)
[2022-12-18 08:34] LABS: Magnesium 2.3 mg/dL (1.6-2.6)
[2022-12-18] MEDS: Aspirin 81 mg Enteric Coated Tablet PO SCH (08:52)
[2022-12-18] MEDS: Gabapentin 300 MG CAP PO SCH ×2 (08:52→21:47)
[2022-12-18] MEDS: Amlodipine 5 MG TAB PO SCH ×2 (08:52→21:46)
[2022-12-18] MEDS: Polyethylene Glycol 3350 17 GM Packet PO SCH (08:52)
[2022-12-18] MEDS: Atorvastatin Calcium 40 MG TAB PO SCH (21:47)
[2022-12-19] MEDS: Meropenem 2 GM, Admixture Fee 1 EACH in Sodium Chloride 0.9% 100 ML IVPB SCH ×3 (05:54→22:23)
[2022-12-19] MEDS: Acetaminophen/Codeine 30-300mg Tablet PO PRN ×2 (05:57→22:06)
[2022-12-19] MEDS: Sodium Chloride 0.9% 1,000 ML IV SCH ×2 (08:14→09:26)
[2022-12-19] MEDS: Aspirin 81 mg Enteric Coated Tablet PO SCH (09:27)
[2022-12-19] MEDS: Amlodipine 5 MG TAB PO SCH ×2 (09:27→22:05)
[2022-12-19] MEDS: Gabapentin 300 MG CAP PO SCH ×2 (09:27→22:05)
[2022-12-19] MEDS: Polyethylene Glycol 3350 17 GM Packet PO SCH (09:29)
[2022-12-19] MEDS: Atorvastatin Calcium 40 MG TAB PO SCH (22:05)
[2022-12-20] MEDS: Sodium Chloride 0.9% 1,000 ML IV SCH ×2 (00:10→15:39)
[2022-12-20] MEDS: Meropenem 2 GM, Admixture Fee 1 EACH in Sodium Chloride 0.9% 100 ML IVPB SCH ×3 (06:15→21:54)
[2022-12-20] MEDS: Acetaminophen/Codeine 30-300mg Tablet PO PRN ×5 (06:15→21:38)
[2022-12-20] MEDS: Aspirin 81 mg Enteric Coated Tablet PO SCH (08:46)
[2022-12-20] MEDS: Amlodipine 5 MG TAB PO SCH ×2 (08:46→21:42)
[2022-12-20] MEDS: Gabapentin 300 MG CAP PO SCH (08:47)
[2022-12-20] MEDS: Polyethylene Glycol 3350 17 GM Packet PO SCH (08:52)
[2022-12-20] MEDS: Morphine 2 MG/ML VIAL SLOW IVP PRN ×2 (14:43→18:41)
[2022-12-20] MEDS ORDERED: Pregabalin 75 MG CAP PO SCH (14:45)
[2022-12-20] MEDS: Atorvastatin Calcium 40 MG TAB PO SCH (21:41)
[2022-12-21] MEDS ORDERED: Pregabalin 75 MG CAP PO SCH (05:00)
[2022-12-21] MEDS: Morphine 2 MG/ML VIAL SLOW IVP PRN (05:59)
[2022-12-21] MEDS: Meropenem 2 GM, Admixture Fee 1 EACH in Sodium Chloride 0.9% 100 ML IVPB SCH (05:59)
[2022-12-21] MEDS: Sodium Chloride 0.9% 1,000 ML IV SCH ×2 (06:18→10:51)
[2022-12-21] MEDS: Aspirin 81 mg Enteric Coated Tablet PO SCH (10:47)
[2022-12-21] MEDS: Polyethylene Glycol 3350 17 GM Packet PO SCH (10:47)
[2022-12-21] MEDS: Amlodipine 5 MG TAB PO SCH (10:47)
[2022-12-21] MEDS ORDERED: Ertapenem 1 GM in Sodium Chloride 0.9% 100 ML IVPB SCH (14:00)
[2022-12-21] MEDS: Acetaminophen/Codeine 30-300mg Tablet PO PRN (14:05)
[2022-12-21] MEDS ORDERED: HYDROcodone/Acetaminophen 5/325 mg Tablet PO PRN (14:18)
[2022-12-21 15:37] VITALS: BP 153/85; TEMP 98.3
[2022-12-21] MEDS ORDERED: Pregabalin 50 MG CAP PO SCH (17:00)
[2022-12-22] MEDS ORDERED: Meropenem 2 GM, Admixture Fee 1 EACH in Sodium Chloride 0.9% 100 ML IVPB SCH (14:00)
== END 2022-12-21 17:54 | DRG 853 ==
LOC: ERS 07:42 → 2SE 16:03 → SURG A 12-16 10:24
PROVIDERS: ADMIT Internal Medicine; ATTEND Internal Medicine
PROC: 4A043R1 Measurement of Venous Saturation, Peripheral, Percutaneous Approach (ICD-10-PCS; 2022-12-13)
PROC: 3E03329 Introduction of Other Anti-infective into Peripheral Vein, Percutaneous Approach (ICD-10-PCS; 2022-12-13)
PROC: 0RG10A0 Fusion of Cervical Vertebral Joint with Interbody Fusion Device, Anterior Approach, Anterior Column, Open Approach (ICD-10-PCS; principal; 2022-12-16)
PROC: 00NW0ZZ Release Cervical Spinal Cord, Open Approach (ICD-10-PCS; 2022-12-16)
PROC: 0RT30ZZ Resection of Cervical Vertebral Disc, Open Approach (ICD-10-PCS; 2022-12-16)
PROC: 02HV33Z Insertion of Infusion Device into Superior Vena Cava, Percutaneous Approach (ICD-10-PCS; 2022-12-20)
PROC: B5181ZA Fluoroscopy of Superior Vena Cava using Low Osmolar Contrast, Guidance (ICD-10-PCS; 2022-12-20)
DX: A41.51 Sepsis due to Escherichia coli [E. coli] (principal); G82.50 Quadriplegia, unspecified; I69.351 Hemiplegia and hemiparesis following cerebral infarction affecting right dominant side; N17.9 Acute kidney failure, unspecified; N30.01 Acute cystitis with hematuria; N13.30 Unspecified hydronephrosis; G93.40 Encephalopathy, unspecified; M47.12 Other spondylosis with myelopathy, cervical region; R65.20 Severe sepsis without septic shock; I10 Essential (primary) hypertension; M84.48XD Pathological fracture, other site, subsequent encounter for fracture with routine healing; M48.02 Spinal stenosis, cervical region; R29.90 Unspecified symptoms and signs involving the nervous system; E78.5 Hyperlipidemia, unspecified; I25.10 Atherosclerotic heart disease of native coronary artery without angina pectoris; E11.628 Type 2 diabetes mellitus with other skin complications; E11.69 Type 2 diabetes mellitus with other specified complication; E66.9 Obesity, unspecified; M51.24 Other intervertebral disc displacement, thoracic region; L08.9 Local infection of the skin and subcutaneous tissue, unspecified; K56.41 Fecal impaction; R33.9 Retention of urine, unspecified; Z20.822 Contact with and (suspected) exposure to COVID-19; Z79.82 Long term (current) use of aspirin; Z79.4 Long term (current) use of insulin; Z79.899 Other long term (current) drug therapy; Z98.890 Other specified postprocedural states; Z98.891 History of uterine scar from previous surgery; Z83.3 Family history of diabetes mellitus; Z82.49 Family history of ischemic heart disease and other diseases of the circulatory system; Z80.0 Family history of malignant neoplasm of digestive organs; Z68.30 Body mass index [BMI] 30.0-30.9, adult
CPT/HCPCS: 36415; 36416; 36569; 51702; 70450; 70553; 71045; 72141; 72146; 72158; 74177; 80048; 80053; 80202; 80306; 80307; 81001; 82533; 82550; 82805; 83605; 83690; 83735; 84100; 84443; 84484; 85025; 85610; 85730; 86140; 87040; 87077; 87086; 87149; 87186; 93005; 96360; 96361; 96365; 96366; 96367; 96375; 96376; A9579; C1713; C1889; J0360; J0692; J1335; J1650; J1815; J2185; J2250; J2270; J2272; J2370; J2405; J2704; J3010; J3370; J3475; J3490; J7050; J7120; Q9967

== ENCOUNTER 2023-02-07 05:44 | Inpatient (IN) | payer OTHER ==
[2023-02-07] MEDS ORDERED: Pantoprazole 40 MG VIAL ONE ×3 (06:07→07:00)
[2023-02-07] MEDS ORDERED: Pantoprazole 80 MG, Admixture Fee 1 EACH in Sodium Chloride 0.9% 100 ML IVPB SCH (06:15)
[2023-02-07 06:23] LABS: #Monocytes 0.5 thou/uL (0.11-0.59); #Neutrophils 9.5 thou/uL (1.40-6.50); %Basophils 0.3 % (0.0-1.0); %Eosinophils 0.3 % (0.0-10.0); %Lymphocytes 12.9 % (21.0-51.0); %Monocytes 4.1 % (0.0-10.0); %Neutrophils 82.1 % (42.0-75.0); Hemoglobin 10.3 g/dL (12.0-16.0); Mean Corpuscular HGB CONC 33.2 g/dL (32.0-36.0); Mean Corpuscular Hemoglobin 30.5 pg (27.0-31.0); Mean Corpuscular Volume 91.7 fl (78.0-98.0); Mean Platelet Volume 10.6 fL (7.4-10.4); Platelet Count 386 10x3/uL (130-400); RBC Distribution Width 12.5 % (11.5-14.5); Red Blood Cell (RBC) Count 3.38 mill/uL (4.20-5.40); White Blood Cell (WBC) Count 11.6 10x3/uL (4.8-10.8)
[2023-02-07 06:40] LABS: INR-International Normal Ratio 1.2; PTT 26.7 sec (22.9-36.1); Prothrombin Time 15.6 sec (12.0-14.7)
[2023-02-07 06:48] LABS: ALT (SGPT) Less than 7 U/L (8-55); AST (SGOT) 9 U/L (5-34); Albumin 3.4 g/dL (3.5-5.0); Alkaline Phosphatase 75 U/L (40-110); Anion Gap 18 mmol/L (10-20); BUN (Urea Nitrogen) 32 mg/dL (9.8-20.1); Bilirubin, Total 0.7 mg/dL (0.2-1.2); Calc. Creatinine Clearance 0 mL/min (70-130); Calcium 8.1 mg/dL (7.8-10.44); Carbon Dioxide 15 mmol/L (22-29); Chloride 107 mmol/L (98-107); Estimated GFR 56; Glucose 270 mg/dL (70-105); Lipase 15 U/L (8-78); Magnesium 1.8 mg/dL (1.6-2.6); Potassium 3.8 mmol/L (3.5-5.1); Protein, Total 5.4 g/dL (6.0-8.3); Sodium 136 mmol/L (136-145)
[2023-02-07 06:51] LABS: Troponin I 0.071 ng/mL (< 0.028)
[2023-02-07] MEDS ORDERED: Sodium Chloride 0.9% 100 ML ONE (07:44)
[2023-02-07] MEDS ORDERED: cefTRIAXone (ROCEPHIN) 2 GM VIAL ONE (07:44)
[2023-02-07] MEDS ORDERED: Glucagon 1 MG/ML KIT IM PRN (08:36)
[2023-02-07] MEDS ORDERED: Dextrose 50% Abboject 50 ML SYRINGE SLOW IVP PRN (08:36)
[2023-02-07] MEDS ORDERED: Dextrose 5% in Water 1,000 ML IV PRN (08:36)
[2023-02-07] MEDS ORDERED: Acetaminophen 325 MG TAB PO PRN (08:37)
[2023-02-07] MEDS ORDERED: HumaLOG 300 UNITS/3 ML VIAL SC PRN (08:37)
[2023-02-07 08:47] LABS: Bilirubin Negative (Negative); Blood, Urine 2+ (Negative); CAUTI Indications for Culture Alt mental st,lethar; Clarity Clear (Clear); Glucose, Urine (Dipstick) 100 mg/dL (Negative); Ketone, Urine 10 mg/dL (Negative); Leukocyte 500 Leu/uL (Negative); Nitrite Negative (Negative); Protein, Urine (Dipstick) 70 mg/dL (Neg-Trace); Specific Gravity, Urine 1.046 (1.002-1.036); Squamous Epithelial 0-3 HPF (0-3); Urobilinogen Normal mg/dL (Less than 2)
[2023-02-07 08:55] LABS: Bacteria/HPF 2+ HPF (None Seen); WBC/HPF 21-50 HPF (0-3)
[2023-02-07 08:56] LABS: Yeast-Budding 1+ HPF (None Seen)
[2023-02-07 09:02] LABS: Urine Culture Reflex Yes Yes
[2023-02-07 09:43] LABS: Lactic Acid 2.3 mmol/L (0.5-2.2)
[2023-02-07] MEDS: Lactated Ringer's 1,000 ML IV SCH (11:00)
[2023-02-07] MEDS ORDERED: Iopamidol-370 76% 500 ML MDV (1 ML CHARGE) ONE (11:09)
[2023-02-07] MEDS ORDERED: PROPOFOL 20 ML ONE ×2 (12:02→12:24)
[2023-02-07] MEDS ORDERED: Lidocaine 2% PF 5 ML VIAL ONE (12:03)
[2023-02-07] MEDS ORDERED: Lidocaine 1% PF 5 ML VIAL ONE (12:55)
[2023-02-07] MEDS ORDERED: PROPOFOL 200 MG/20 ML VIAL ONE (12:55)
[2023-02-07] MEDS: Senokot S 8.6-50 MG TAB PO SCH ×2 (13:40→21:22)
[2023-02-07] MEDS ORDERED: Ondansetron PF 4 MG/2 ML Vial IVP PRN (13:48)
[2023-02-07] MEDS ORDERED: fentaNYL 50 mcg/mL 1 mL Vial ONE ×2 (14:53→16:56)
[2023-02-07] MEDS: HYDROcodone/Acetaminophen 5/325 mg Tablet PO PRN (21:21)
[2023-02-07] MEDS: Atorvastatin Calcium 40 MG TAB PO SCH (21:22)
[2023-02-07 21:57] VITALS: BMI 26.3
[2023-02-08] MEDS: Lactated Ringer's 1,000 ML IV SCH ×2 (00:04→04:47)
[2023-02-08 07:07] LABS: #Eosinphils 0.1 thou/uL (0.0-0.7); #Monocytes 0.5 thou/uL (0.11-0.59); #Neutrophils 3.3 thou/uL (1.40-6.50); %Basophils 0.5 % (0.0-1.0); %Eosinophils 1.8 % (0.0-10.0); %Lymphocytes 29.1 % (21.0-51.0); %Monocytes 9.3 % (0.0-10.0); %Neutrophils 59.1 % (42.0-75.0); Mean Corpuscular HGB CONC 33.2 g/dL (32.0-36.0); Mean Corpuscular Volume 93.4 fl (78.0-98.0); Mean Platelet Volume 10.3 fL (7.4-10.4); Platelet Count 259 10x3/uL (130-400); RBC Distribution Width 13.2 % (11.5-14.5); Red Blood Cell (RBC) Count 2.29 mill/uL (4.20-5.40); White Blood Cell (WBC) Count 5.6 10x3/uL (4.8-10.8)
[2023-02-08 07:31] LABS: Hematocrit 21.4 % (36.0-47.0); Hemoglobin 7.1 g/dL (12.0-16.0)
[2023-02-08 07:38] LABS: ALT (SGPT) Less than 7 U/L (8-55); AST (SGOT) 10 U/L (5-34); Albumin 2.7 g/dL (3.5-5.0); Alkaline Phosphatase 52 U/L (40-110); Anion Gap 10 mmol/L (10-20); BUN (Urea Nitrogen) 22 mg/dL (9.8-20.1); Bilirubin, Total 0.3 mg/dL (0.2-1.2); Calc. Creatinine Clearance 102 mL/min (70-130); Calcium 8.1 mg/dL (7.8-10.44); Carbon Dioxide 19 mmol/L (22-29); Chloride 109 mmol/L (98-107); Estimated GFR 103; Globulin 1.9 g/dL (2.4-3.5); Glucose 122 mg/dL (70-105); Potassium 3.8 mmol/L (3.5-5.1); Protein, Total 4.6 g/dL (6.0-8.3); Sodium 134 mmol/L (136-145)
[2023-02-08] MEDS: Senokot S 8.6-50 MG TAB PO SCH ×2 (10:30→21:10)
[2023-02-08] MEDS ORDERED: Lidocaine 1% PF 5 ML VIAL ONE ×2 (12:22→12:51)
[2023-02-08] MEDS ORDERED: PROPOFOL 20 ML ONE (12:22)
[2023-02-08] MEDS ORDERED: PROPOFOL 200 MG/20 ML VIAL ONE (12:51)
[2023-02-08] MEDS: HYDROcodone/Acetaminophen 5/325 mg Tablet PO PRN (13:54)
[2023-02-08] MEDS ORDERED: Meropenem 1 GM in Sodium Chloride 0.9% 100 ML IVPB SCH (15:15)
[2023-02-08] MEDS ORDERED: Cyclobenzaprine 10 MG TAB PO SCH (17:30)
[2023-02-08 17:47] LABS: Hematocrit 20.9 % (36.0-47.0)
[2023-02-08] MEDS: Atorvastatin Calcium 40 MG TAB PO SCH (21:10)
[2023-02-08] MEDS: Meropenem 1 GM in Sodium Chloride 0.9% 100 ML IVPB SCH (21:11)
[2023-02-08] MEDS: Pantoprazole 40 MG VIAL IVP SCH (21:11)
[2023-02-09] MEDS: Lactated Ringer's 1,000 ML IV SCH ×3 (02:00→14:24)
[2023-02-09] MEDS: Meropenem 1 GM in Sodium Chloride 0.9% 100 ML IVPB SCH ×3 (05:12→21:35)
[2023-02-09 06:07] LABS: #Eosinphils 0.2 thou/uL (0.0-0.7); #Monocytes 0.5 thou/uL (0.11-0.59); #Neutrophils 2.3 thou/uL (1.40-6.50); %Basophils 0.6 % (0.0-1.0); %Eosinophils 3.1 % (0.0-10.0); %Monocytes 9.8 % (0.0-10.0); %Neutrophils 44.1 % (42.0-75.0); Hematocrit 20.2 % (36.0-47.0); Hemoglobin 6.7 g/dL (12.0-16.0); Mean Corpuscular HGB CONC 33.2 g/dL (32.0-36.0); Mean Corpuscular Hemoglobin 31.2 pg (27.0-31.0); Mean Platelet Volume 9.9 fL (7.4-10.4); Platelet Count 269 10x3/uL (130-400); RBC Distribution Width 13.2 % (11.5-14.5); Red Blood Cell (RBC) Count 2.15 mill/uL (4.20-5.40); White Blood Cell (WBC) Count 5.1 10x3/uL (4.8-10.8)
[2023-02-09 06:38] LABS: Anion Gap 9 mmol/L (10-20); BUN (Urea Nitrogen) 13 mg/dL (9.8-20.1); Calc. Creatinine Clearance 99 mL/min (70-130); Calcium 7.9 mg/dL (7.8-10.44); Carbon Dioxide 21 mmol/L (22-29); Chloride 111 mmol/L (98-107); Estimated GFR 103; Glucose 108 mg/dL (70-105); Potassium 3.5 mmol/L (3.5-5.1); Sodium 137 mmol/L (136-145)
[2023-02-09] MEDS: Senokot S 8.6-50 MG TAB PO SCH ×2 (08:40→20:33)
[2023-02-09] MEDS: Pantoprazole 40 MG VIAL IVP SCH ×2 (08:40→20:33)
[2023-02-09 16:55] LABS: Hematocrit 27.2 % (36.0-47.0); Hemoglobin 9.3 g/dL (12.0-16.0); Platelet Count 287 10x3/uL (130-400)
[2023-02-09] MEDS: Atorvastatin Calcium 40 MG TAB PO SCH (20:33)
[2023-02-10] MEDS: Meropenem 1 GM in Sodium Chloride 0.9% 100 ML IVPB SCH ×2 (05:05→15:35)
[2023-02-10] MEDS: Lactated Ringer's 1,000 ML IV SCH ×2 (06:03→15:37)
[2023-02-10] MEDS: Senokot S 8.6-50 MG TAB PO SCH (08:11)
[2023-02-10] MEDS: Pantoprazole 40 MG VIAL IVP SCH (08:11)
[2023-02-10 08:13] VITALS: TEMP 97.9
[2023-02-10 12:41] VITALS: BP 116/75
== END 2023-02-10 18:44 | disposition home or self-care (01) | DRG 377 ==
LOC: ERS 05:44 → SUATTDRO 05:44 → ERHOLD 08:30 → T4-B 19:34
PROVIDERS: ADMIT Internal Medicine; ATTEND Internal Medicine
PROC: 0W3P8ZZ Control Bleeding in Gastrointestinal Tract, Via Natural or Artificial Opening Endoscopic (ICD-10-PCS; principal; 2023-02-07)
PROC: 0DB68ZX Excision of Stomach, Via Natural or Artificial Opening Endoscopic, Diagnostic (ICD-10-PCS; 2023-02-07)
PROC: 30233N1 Transfusion of Nonautologous Red Blood Cells into Peripheral Vein, Percutaneous Approach (ICD-10-PCS; 2023-02-09)
DX: K26.4 Chronic or unspecified duodenal ulcer with hemorrhage (principal); I21.A1 Myocardial infarction type 2; E87.20 Acidosis, unspecified; N17.9 Acute kidney failure, unspecified; N18.4 Chronic kidney disease, stage 4 (severe); D62 Acute posthemorrhagic anemia; N39.0 Urinary tract infection, site not specified; E87.1 Hypo-osmolality and hyponatremia; R18.8 Other ascites; M48.54XA Collapsed vertebra, not elsewhere classified, thoracic region, initial encounter for fracture; I25.10 Atherosclerotic heart disease of native coronary artery without angina pectoris; K59.09 Other constipation; K25.4 Chronic or unspecified gastric ulcer with hemorrhage; E11.22 Type 2 diabetes mellitus with diabetic chronic kidney disease; I12.9 Hypertensive chronic kidney disease with stage 1 through stage 4 chronic kidney disease, or unspecified chronic kidney disease; E88.09 Other disorders of plasma-protein metabolism, not elsewhere classified; K44.9 Diaphragmatic hernia without obstruction or gangrene; K25.9 Gastric ulcer, unspecified as acute or chronic, without hemorrhage or perforation; E78.00 Pure hypercholesterolemia, unspecified; E11.65 Type 2 diabetes mellitus with hyperglycemia; Z98.890 Other specified postprocedural states; Z79.82 Long term (current) use of aspirin; Z79.899 Other long term (current) drug therapy; Z79.84 Long term (current) use of oral hypoglycemic drugs; I69.398 Other sequelae of cerebral infarction
CPT/HCPCS: 36415; 36416; 36430; 71045; 74177; 80048; 80053; 81001; 83605; 83690; 83735; 83880; 84443; 84484; 85025; 85610; 85730; 86850; 86900; 86901; 87040; 87086; 88305; 88342; 93005; 96361; 96365; 96366; 96376; 97139; C9113; J0696; J1815; J2001; J2185; J2704; J3010; J3490; J7120; P9016; Q9967

== ENCOUNTER 2023-04-28 07:42 | Day surgery (SDC) | payer OTHER ==
[2023-04-28 08:13] LABS: #Basophils 0.1 thou/uL (0.0-0.2); #Eosinphils 0.2 thou/uL (0.0-0.7); #Monocytes 0.5 thou/uL (0.11-0.59); #Neutrophils 4.3 thou/uL (1.40-6.50); %Basophils 0.7 % (0.0-1.0); %Lymphocytes 31.3 % (21.0-51.0); %Monocytes 6.5 % (0.0-10.0); %Neutrophils 58.4 % (42.0-75.0); Hematocrit 40.8 % (36.0-47.0); Hemoglobin 13.6 g/dL (12.0-16.0); Mean Corpuscular HGB CONC 33.3 g/dL (32.0-36.0); Mean Corpuscular Hemoglobin 30.2 pg (27.0-31.0); Mean Corpuscular Volume 90.7 fl (78.0-98.0); Platelet Count 391 10x3/uL (130-400); RBC Distribution Width 12.4 % (11.5-14.5); White Blood Cell (WBC) Count 7.4 10x3/uL (4.8-10.8)
[2023-04-28 08:37] LABS: Prothrombin Time 13.5 sec (12.0-14.7)
[2023-04-28 08:38] LABS: PTT 30.5 sec (22.9-36.1)
[2023-04-28 09:35] VITALS: BP 213/103; TEMP 97
[2023-04-28] MEDS ORDERED: Lidocaine 1% w/Epinephrine 1:100K 20 ML VIAL ONE (09:49)
[2023-04-28] MEDS ORDERED: Midazolam HCl 2 mg/2 ml Vial ONE (09:49)
[2023-04-28] MEDS ORDERED: Sodium Bicarbonate 2.5 MEQ/5 ML SDV ONE (09:49)
[2023-04-28] MEDS ORDERED: fentaNYL 50 mcg/mL 1 mL Vial ONE (09:49)
[2023-04-28] MEDS ORDERED: Metoprolol Tartrate 5 MG (5 mL) VIAL ONE (10:07)
[2023-04-28] MEDS ORDERED: Lidocaine 2% 6 ML (Jelly) SYR ONE (10:48)
[2023-04-28] MEDS ORDERED: FLU VACC QS2023-24(6MOS UP)/PF 60 MCG/0.5 ML SYRINGE IM ONE (14:00)
== END 2023-04-28 13:30 | disposition home or self-care (01) ==
LOC: CT 07:42
PROVIDERS: ATTEND Urology
PROC: 0T9B30Z Drainage of Bladder with Drainage Device, Percutaneous Approach (ICD-10-PCS; principal; 2023-04-28)
DX: R33.9 Retention of urine, unspecified (principal)
CPT/HCPCS: 51102; 77002; 85025; 85610; 85730; C2627; J2250; J3010